=== PATIENT | female | born 1945 | race Caucasian/White ===

== ENCOUNTER 2017-03-08 09:43 | Outpatient (CLI) | payer MEDICARE ==
[~2017-03-08 09:43] MED LIST: ADVAIR 250/5028 PUFF IN; AGGRENOX (D1 CAPSULE PO; ALBUTEROL2.5 MG/NEB IN; ALLERGY SHOT; ALLERGY SHOTS; CALCIUM CARBON600 MG PO; COMBIVENT INH14.7 GM IN; LEVOTHYROXIN0.025 M2 PO; NEXIUM40 MG PO; NORVASC 5MG. TAB5 MG PO; PREVACID 30MG C30 M1 PO; RHINOCORT NS; SYNTHROID PO; XOLAIR150 MG SC; [UNRECOGNIZED DRUG - OTHER] NS
[2017-03-08 10:10] VITALS: BP 110/59
== END 2017-03-08 10:25 | disposition home or self-care (01) ==
LOC: COP 09:43
DX: J45.909 Unspecified asthma, uncomplicated (principal)
CPT/HCPCS: J2357

== ENCOUNTER 2017-05-31 09:50 | Outpatient (CLI) | payer MEDICARE ==
[2017-05-31 10:23] VITALS: BP 113/60
== END 2017-05-31 10:36 | disposition home or self-care (01) ==
LOC: COP 09:50
DX: J45.909 Unspecified asthma, uncomplicated (principal)
CPT/HCPCS: J2357

== ENCOUNTER 2017-07-26 09:45 | Outpatient (CLI) | payer MEDICARE ==
[2017-07-26 10:20] VITALS: BP 121/55
== END 2017-07-26 10:40 | disposition home or self-care (01) ==
LOC: COP 09:45
DX: J45.909 Unspecified asthma, uncomplicated (principal)
CPT/HCPCS: J2357

== ENCOUNTER 2017-08-09 09:40 | Outpatient (CLI) | payer MEDICARE ==
[2017-08-09 10:08] VITALS: BP 120/50
== END 2017-08-09 10:08 | disposition home or self-care (01) ==
LOC: COP 09:40
DX: J45.909 Unspecified asthma, uncomplicated (principal)
CPT/HCPCS: J2357

== ENCOUNTER 2017-08-23 10:02 | Outpatient (CLI) | payer MEDICARE ==
[2017-08-23 10:25] VITALS: BP 117/60
== END 2017-08-23 10:40 | disposition home or self-care (01) ==
LOC: COP 10:02
DX: J45.909 Unspecified asthma, uncomplicated (principal)
CPT/HCPCS: J2357

== ENCOUNTER 2017-09-20 10:01 | Outpatient (CLI) | payer MEDICARE ==
[2017-09-20 10:40] VITALS: BP 115/67
== END 2017-09-20 10:45 | disposition home or self-care (01) ==
LOC: COP 10:01
DX: J45.909 Unspecified asthma, uncomplicated (principal)
CPT/HCPCS: J2357

== ENCOUNTER 2017-10-04 09:50 | Outpatient (CLI) | payer MEDICARE ==
[2017-10-04 10:25] VITALS: BP 116/65
== END 2017-10-04 10:45 | disposition home or self-care (01) ==
LOC: COP 09:50
DX: J45.909 Unspecified asthma, uncomplicated (principal)
CPT/HCPCS: J2357

== ENCOUNTER 2017-10-18 09:50 | Outpatient (CLI) | payer MEDICARE ==
[2017-10-18 10:34] VITALS: BP 125/63
== END 2017-10-18 10:55 | disposition home or self-care (01) ==
LOC: COP 09:50
DX: J45.909 Unspecified asthma, uncomplicated (principal)
CPT/HCPCS: J2357